=== PATIENT | male | born 1985 | race Hispanic/Latino ===

== ENCOUNTER 2018-09-15 07:31 | Emergency (ER) | payer SELFPAY ==
[2018-09-15] MEDS ORDERED: TORADOL PO (08:50)
[2018-09-15] MEDS ORDERED: AMOXICILLIN500 MG PO (08:50)
[2018-09-15 09:14] VITALS: BP 129/77
== END 2018-09-15 09:14 | disposition home or self-care (01) | DRG 153 ==
LOC: ED 07:31
DX: J02.9 Acute pharyngitis, unspecified (principal); S46.911A Strain of unspecified muscle, fascia and tendon at shoulder and upper arm level, right arm, initial encounter; X50.3XXA Overexertion from repetitive movements, initial encounter; Y93.89 Activity, other specified; Y92.79 Other farm location as the place of occurrence of the external cause

== ENCOUNTER 2018-10-03 07:38 | Emergency (ER) | payer SELFPAY ==
[~2018-10-03 07:38] MED LIST: AMOXICILLIN500 MG PO; TORADOL PO
[2018-10-03] MEDS ORDERED: PREDNISONE10 MG PO (08:37)
[2018-10-03 08:42] VITALS: BP 116/68
== END 2018-10-03 08:45 | disposition home or self-care (01) | DRG 74 ==
LOC: ED 07:38
DX: G90.01 Carotid sinus syncope (principal)